=== PATIENT | male | born 1975 | race Caucasian/White ===

== ENCOUNTER 2018-08-30 06:38 | Emergency (ER) | payer OTHER ==
[~2018-08-30] VITALS: Ht 175.3 cm; Wt 107.3 kg
[~2018-08-30 06:38] MED LIST: ASPI-515 PO; LEVO150C2 PO; LOSA100T14 PO
[2018-08-30 06:42] VITALS: BP 150/96
[2018-08-30] MEDS ORDERED: HYDROcodone/APAP 5/325 TABLET PO ONE (07:00)
[2018-08-30] MEDS ORDERED: ONDANSETRON ODT 4 MG PO ONE (07:00)
[2018-08-30] MEDS ORDERED: ONDANSETRON ODT 4 MG ONE (07:19)
[2018-08-30] MEDS ORDERED: HYDROcodone/APAP 5/325 TABLET ONE (07:19)
--- NOTE | 2018-08-30 08:38 | NUR ---
LATE ENTRY FOR 829 Patient/Caregiver given discharge instructions and they have confirmed that they understand the instructions. Patient ambulatory with steady gait. PT LEFT WITH ALL PERSONAL BELONGINGS.
== END 2018-08-30 08:40 | disposition home or self-care (01) ==
LOC: ED 07:01
DX: S53.401A Unspecified sprain of right elbow, initial encounter (principal); I10 Essential (primary) hypertension; X58.XXXA Exposure to other specified factors, initial encounter; Y93.89 Activity, other specified; Y92.89 Other specified places as the place of occurrence of the external cause; Y99.8 Other external cause status
CPT/HCPCS: 29105; 73080; 99283; Q0162

== ENCOUNTER 2019-05-08 12:35 | Observation (INO) | payer OTHER ==
[~2019-05-08] VITALS: Ht 172.7 cm; Wt 113.5 kg
[2019-05-08] MEDS ORDERED: ASPIRIN 81 MG TABLET CHEW ONE (13:15)
--- NOTE | 2019-05-08 13:23 | NUR ---
PT CAME IN CO OF CHEST PAIN "07/10" THAT STARTED YESTERDAY. SAYS "IT COMES AND GOES". PT IS CONNECTED TO [employer]. X RAY IN WITH PT
[2019-05-08] MEDS ORDERED: ASPIRIN 81 MG TABLET CHEW PO ONE (13:30)
[2019-05-08 13:50] LABS: BASOPHILS # (AUTO) 0.03 x10^3/uL (0-0.1); BASOPHILS % (AUTO) 0 % (0-1); EOSINOPHILS # (AUTO) 0.19 x10^3/uL (0-0.4); EOSINOPHILS % (AUTO) 3 % (1-7); LYMPHOCYTES # (AUTO) 1.95 x10^3/uL (1-3.4); LYMPHOCYTES % (AUTO) 29 % (22-44); MD NO; MEAN CORPUSCULAR HEMOGLOBIN 31.2 pg (27.5-34.5); MEAN CORPUSCULAR HGB CONC 34.8 g/dL (33.2-36.2); MEAN CORPUSCULAR VOLUME 89.6 fL (81-97); MEAN PLATELET VOLUME 7.8 fL (7.4-10.4); MONOCYTES # (AUTO) 0.36 x10^3/uL (0.2-0.8); MONOCYTES % (AUTO) 5 % (2-9); NEUTROPHILS # (AUTO) 4.31 x10^3/uL (1.8-6.8); NEUTROPHILS % (AUTO) 63 % (42-75); PLATELET COUNT 223 x10^3/uL (130-400); RED BLOOD COUNT 4.69 x10^6/uL (4.38-5.82); RED CELL DISTRIBUTION WIDTH 13.9 % (9.4-14.8)
[2019-05-08 14:03] LABS: ALANINE AMINOTRANSFERASE 77 U/L (12-78); ALBUMIN 4.1 g/dL (3.4-5.0); ANION GAP 9 mmol/L (5-15); CALCIUM 8.6 mg/dL (8.5-10.1); CHLORIDE 105 mmol/L (98-107); CREATININE 0.96 mg/dL (0.7-1.3)
[2019-05-08 14:06] LABS: ALKALINE PHOSPHATASE 89 U/L (45-117); TOTAL PROTEIN 7.9 g/dL (6.4-8.2); TROPONIN I < 0.015 ng/mL (0.000-0.045)
[2019-05-08 14:09] LABS: BILIRUBIN,TOTAL 0.6 mg/dL (0.2-1.0)
[2019-05-08] MEDS ORDERED: ALIR150P SC (16:44)
[2019-05-08] MEDS ORDERED: LEVO200T PO (16:44)
[2019-05-08] MEDS ORDERED: ALLO100T30 PO (16:44)
[2019-05-08 16:49] VITALS: BP 150/74
[2019-05-08] MEDS ORDERED: NITROGLYCERIN 0.4 MG/SPRAY SL PRN (17:00)
[2019-05-08] MEDS ORDERED: LABETALOL 5MG/ML, 20ML IVPush PRN (17:00)
[2019-05-08] MEDS ORDERED: ASPIRIN 325 MG TABLET EC PO ONE (17:00)
[2019-05-08] MEDS ORDERED: NITROGLYCERIN 0.4 MG BOTTLE (25 TABS) SL PRN (17:00)
[2019-05-08] MEDS ORDERED: ENOXAPARIN 40 MG/0.4 ML SQ SCH (18:00)
[2019-05-08 18:41] LABS: CHOLESTEROL, TOTAL 197 mg/dL (140-239); TRIGLYCERIDES 656 mg/dL (50-200)
[2019-05-08 18:45] LABS: CHOL/HDL RATIO 10.4; HDL CHOL % 10 % (26-37); HDL CHOLESTEROL (DIRECT) 19 mg/dL (40-60); TROPONIN I < 0.015 ng/mL (0.000-0.045)
[2019-05-08 19:41] VITALS: BP 148/79
[2019-05-08] MEDS ORDERED: SODIUM CHLORIDE FLUSH 10ML SYR IVF SCH (21:00)
[2019-05-08 21:14] LABS: TROPONIN I < 0.015 ng/mL (0.000-0.045)
[2019-05-09 00:27] VITALS: BP 157/74
[2019-05-09] MEDS ORDERED: ASPIRIN 325 MG TABLET EC PO SCH (06:00)
[2019-05-09] MEDS ORDERED: LEVOTHYROXINE 200 MCG TABLET PO SCH (06:00)
[2019-05-09] MEDS ORDERED: REGADENOSON 0.4 MG/5 ML SYRINGE ONE (08:33)
[2019-05-09] MEDS ORDERED: LOSARTAN 100 MG TAB PO SCH (09:00)
[2019-05-09] MEDS ORDERED: ALLOPURINOL 100 MG TABLET PO SCH (09:00)
[2019-05-09] MEDS ORDERED: FENOFIBRATE 145 MG TABLET PO SCH (09:00)
[2019-05-09 13:10] VITALS: BP 132/80
[2019-05-09] MEDS ORDERED: FENO145T19 PO (15:17)
[2019-05-09] MEDS ORDERED: METO25TA91 PO (15:17)
== END 2019-05-09 16:32 | disposition home or self-care (01) ==
LOC: ED 14:09 → EDIP 15:11 → INTOOBSV 15:11 → 5SO 16:09 → DCLOUNGE 05-09 16:25
PROVIDERS: ADMIT Internal Medicine; ATTEND Hospitalist
DX: R07.89 Other chest pain (principal); I10 Essential (primary) hypertension; E06.3 Autoimmune thyroiditis; E78.5 Hyperlipidemia, unspecified; K76.0 Fatty (change of) liver, not elsewhere classified; M10.9 Gout, unspecified; I16.0 Hypertensive urgency; Z79.899 Other long term (current) drug therapy
CPT/HCPCS: 36415; 71045; 71275; 78452; 80053; 80061; 84439; 84443; 84484; 85025; 93005; 93017; 93306; 93880; 96372; 99284; A9502; C9898; G0378; J1650; J2785